=== PATIENT | female | born 1970 | race Caucasian/White ===

== ENCOUNTER 2017-12-27 07:25 | Emergency (ER) | payer OTHER ==
[~2017-12-27] VITALS: Ht 160 cm; Wt 83.9 kg
[2017-12-27] MEDS ORDERED: REGLAN 10 MG TA10 MG PO (07:30)
[2017-12-27] MEDS ORDERED: BENTYL 20 MG TA20 M1 PO (07:30)
[2017-12-27 08:03] LABS: URINE BILIRUBIN NEGATIVE (Negative); URINE BLOOD TRACE (Negative); URINE CLARITY CLEAR; URINE COLOR YELLOW; URINE GLUCOSE-RANDOM* NEGATIVE (Negative); URINE KETONES NEGATIVE (Negative); URINE LEUKOCYTES-REFLEX NEGATIVE (Negative); URINE NITRITE-REFLEX NEGATIVE (Negative); URINE PROTEIN (DIPSTICK) NEGATIVE (Negative); URINE SPECIFIC GRAVITY <= 1.005 (1.005-1.035); URINE UROBILINOGEN 0.2 E.U./dl (0.2-1.0)
[2017-12-27 08:04] LABS: ABSOLUTE NEUTROPHILS 4.9 thou/uL (1.4-8.2); BASOPHILS 0.7 % (0.0-2.0); EOSINOPHILS 1.4 % (0.0-3.0); HEMATOCRIT 37.9 % (37.0-47.0); HEMOGLOBIN 12.7 gm/dL (12.0-15.0); MCH 30.4 pg (26.0-34.0); MCHC 33.4 g/dL (28.0-37.0); MONOCYTES 8.9 % (1.0-8.0); PLATELET COUNT 255 thou/uL (150-400); RBC 4.16 mil/uL (4.20-5.00); WBC 9.6 thou/uL (4.0-11.0)
[2017-12-27 08:11] LABS: CALCIUM 9.1 mg/dL (8.5-10.1); CREATININE 0.9 mg/dL (0.6-1.0); POTASSIUM 4.4 mmol/L (3.5-5.1)
[2017-12-27 08:16] LABS: ALBUMIN 3.8 g/dL (3.4-5.0); TOTAL BILIRUBIN 0.4 mg/dL (<0.1-1.0); TOTAL PROTEIN 7.4 g/dL (6.4-8.2)
[2017-12-27] MEDS ORDERED: ZOFRAN4 MG PO (08:41)
[2017-12-27] MEDS ORDERED: OMEPRAZOLE20 M2 PO (08:42)
[2017-12-27 09:23] VITALS: BP 115/51
== END 2017-12-27 09:23 | disposition home or self-care (01) ==
LOC: ER 07:25
PROVIDERS: Emergency Medicine
DX: K21.9 Gastro-esophageal reflux disease without esophagitis (principal); R19.7 Diarrhea, unspecified